=== PATIENT | male | born 1955 | race Hispanic/Latino ===

== ENCOUNTER 2021-06-16 23:23 | Emergency (ER) | payer OTHER ==
[~2021-06-16] VITALS: Ht 167.6 cm; Wt 95.3 kg
[2021-06-16 23:45] LABS: BASOPHILS % (AUTO) 0.4 % (0.0-5.0); EOSINOPHILS % (AUTO) 0.3 % (0.0-8.0); HEMATOCRIT 45.7 % (42-54); LYMPHOCYTES % (AUTO) 14.3 % (21.0-51.0); MEAN CORPUSCULAR HGB CONC 32.8 g/dL (32.0-36.0); MEAN CORPUSCULAR VOLUME 88.2 fL (79-99); MONOCYTES % (AUTO) 5.6 % (3.0-13.0); NEUTROPHILS % (AUTO) 79.1 % (40.0-77.0); PLATELET COUNT (AUTO) 223 K/uL (130-400); RED BLOOD CELL COUNT(AUTO) 5.18 MIL/uL (4.50-6.20); RED CELL DISTRIBUTION WIDTH 13.5 % (11.0-15.5); WHITE BLOOD COUNT (AUTO) 11.8 K/uL (4.8-10.8)
[2021-06-16] MEDS ORDERED: ONDANSETRON 4MG INJ ONE (23:50)
[2021-06-16] MEDS ORDERED: MORPHINE 2 MG SYG ONE (23:51)
[2021-06-16 23:56] LABS: CREATININE 0.7 mg/dL (0.5-1.5); POTASSIUM 3.7 mmol/L (3.5-5.1)
[2021-06-17] MEDS ORDERED: MORPHINE 2 MG SYG IVP ONE
[2021-06-17] MEDS ORDERED: ONDANSETRON 4MG INJ IVP ONE
[2021-06-17] MEDS ORDERED: 0.9% NACL 500ML IV.SOLN 500 ML IV ONE
[2021-06-17 00:02] LABS: ALBUMIN 4.2 g/dL (3.5-5.0); BILIRUBIN,TOTAL 0.7 mg/dL (0.2-1.0); TOTAL PROTEIN, SERUM 7.9 g/dL (6.0-8.3)
[2021-06-17 00:03] LABS: APPEARANCE,URINE CLEAR (CLEAR); BILIRUBIN,URINE NEGATIVE (NEGATIVE); COLOR,URINE YELLOW (YELLOW); GLUCOSE, URINE (UA) NEGATIVE (NEGATIVE); KETONES,URINE >=80 mg/dL (NEGATIVE); LEUKOCYTE ESTERASE ,URINE NEGATIVE (NEGATIVE); NITRATE,URINE NEGATIVE (NEGATIVE); OCCULT BLOOD,URINE NEGATIVE (NEGATIVE); PH,URINE 6.5 (5.0-8.0); PROTEIN,URINE TRACE mg/dL (NEGATIVE); UROBILINOGEN,URINE 0.2 mg/dL (0.2-1.0)
[2021-06-17 00:21] LABS: BACTERIA,URINE Rare /HPF (None Seen); MUCUS,URINE Rare LPF (None Seen); RBC,URINE None Seen /HPF (0-1); SQUAMOUS EPITHELIAL CELL,UR 0-2 /HPF (0-2); WBC,URINE 0-1 /HPF (0-1)
[2021-06-17] MEDS ORDERED: MAG/ALUM/SIMETH 30 ML UDCUP ONE (01:55)
[2021-06-17] MEDS ORDERED: LIDOCAINE HCL 2% VISCOUS 15 ML UDCUP ONE (01:55)
[2021-06-17] MEDS ORDERED: DICYCLOMINE HCL 10 MG/5 ML ML PO ONE (01:59)
[2021-06-17] MEDS ORDERED: SUCRALFATE 1 GM TABLET ONE (02:11)
[2021-06-17] MEDS ORDERED: ONDANSETRON 4MG INJ ONE (02:18)
[2021-06-17] MEDS ORDERED: MAG/ALUM/SIMETH 30 ML UDCUP PO ONE (02:30)
[2021-06-17] MEDS ORDERED: DICYCLOMINE HCL 10 MG/5 ML ML PO SCH (02:30)
[2021-06-17] MEDS ORDERED: LIDOCAINE HCL 2% VISCOUS 15 ML UDCUP PO ONE (02:30)
[2021-06-17] MEDS ORDERED: SUCRALFATE 1 GM TABLET PO SCH (02:30)
[2021-06-17 02:41] VITALS: BP 160/87
[2021-06-17] MEDS ORDERED: ONDA-104 PO (02:46)
[2021-06-17] MEDS ORDERED: SUCR1TAB2 PO (02:46)
== END 2021-06-17 02:55 | disposition home or self-care (01) ==
LOC: EDH 23:23
DX: K29.70 Gastritis, unspecified, without bleeding (principal)
CPT/HCPCS: 36415; 74176; 76705; 80053; 81001; 83690; 83880; 84484; 85025; 93005; 96361; 96374; 96375; 96376; 99285; J2405 ×2

== ENCOUNTER 2021-07-10 22:25 | Emergency (ER) | payer OTHER ==
[~2021-07-10] VITALS: Ht 167.6 cm; Wt 92.1 kg
[~2021-07-10 22:25] MED LIST: ONDA-104 PO; SUCR1TAB2 PO
[2021-07-10 22:57] LABS: BASOPHILS % (AUTO) 0.8 % (0.0-5.0); EOSINOPHILS % (AUTO) 2.3 % (0.0-8.0); HEMATOCRIT 45.8 % (42-54); LYMPHOCYTES % (AUTO) 34.4 % (21.0-51.0); MEAN CORPUSCULAR HEMOGLOBIN 28.4 pg (27.0-33.0); MEAN CORPUSCULAR HGB CONC 32.1 g/dL (32.0-36.0); MEAN CORPUSCULAR VOLUME 88.6 fL (79-99); MONOCYTES % (AUTO) 8.6 % (3.0-13.0); NEUTROPHILS % (AUTO) 53.6 % (40.0-77.0); PLATELET COUNT (AUTO) 220 K/uL (130-400); RED BLOOD CELL COUNT(AUTO) 5.17 MIL/uL (4.50-6.20); RED CELL DISTRIBUTION WIDTH 13.5 % (11.0-15.5); WHITE BLOOD COUNT (AUTO) 8.7 K/uL (4.8-10.8)
[2021-07-10] MEDS ORDERED: MAG/ALUM/SIMETH 30 ML UDCUP PO ONE (23:00)
[2021-07-10] MEDS ORDERED: DICYCLOMINE HCL 10 MG/5 ML ML PO ONE (23:00)
[2021-07-10] MEDS ORDERED: PROMETHAZINE HCL 25 MG/ML 1ML AMPULE IM ONE (23:00)
[2021-07-10] MEDS ORDERED: FAMOTIDINE 20MG VIAL IV ONE (23:00)
[2021-07-10] MEDS ORDERED: ONDANSETRON 4MG INJ IVP ONE (23:00)
[2021-07-10] MEDS ORDERED: 0.9%NACL 1000ML 1,000 ML IV ONE (23:00)
[2021-07-10] MEDS ORDERED: LIDOCAINE HCL 2% VISCOUS 15 ML UDCUP PO ONE (23:00)
[2021-07-10 23:09] LABS: CREATININE 1.1 mg/dL (0.5-1.5); POTASSIUM 3.9 mmol/L (3.5-5.1)
[2021-07-10 23:16] LABS: ALBUMIN 3.9 g/dL (3.5-5.0); BILIRUBIN,TOTAL 0.2 mg/dL (0.2-1.0); TOTAL PROTEIN, SERUM 7.5 g/dL (6.0-8.3)
[2021-07-10] MEDS ORDERED: LORAZEPAM 2 MG/ML 1 ML VIAL IVP ONE (23:30)
[2021-07-10] MEDS ORDERED: DICY20TA2 PO (23:45)
[2021-07-10] MEDS ORDERED: FAMO-136 PO (23:45)
[2021-07-10] MEDS ORDERED: ONDA4TAB10 PO (23:45)
[2021-07-11 01:17] LABS: APPEARANCE,URINE Clear (CLEAR); BILIRUBIN,URINE Negative (NEGATIVE); COLOR,URINE Yellow (YELLOW); GLUCOSE, URINE (UA) Negative (NEGATIVE); KETONES,URINE Trace mg/dL (NEGATIVE); LEUKOCYTE ESTERASE ,URINE Negative (NEGATIVE); NITRATE,URINE Negative (NEGATIVE); OCCULT BLOOD,URINE Negative (NEGATIVE); PH,URINE 6.5 (5.0-8.0); PROTEIN,URINE Trace mg/dL (NEGATIVE); UROBILINOGEN,URINE 0.2 mg/dL (0.2-1.0)
[2021-07-11 03:52] VITALS: BP 145/74
== END 2021-07-11 03:55 | disposition home or self-care (01) ==
LOC: EDH 22:25
DX: K29.70 Gastritis, unspecified, without bleeding (principal); R07.89 Other chest pain; E66.9 Obesity, unspecified; Z68.32 Body mass index [BMI] 32.0-32.9, adult; E78.00 Pure hypercholesterolemia, unspecified; I10 Essential (primary) hypertension; Z79.899 Other long term (current) drug therapy; Z98.890 Other specified postprocedural states
CPT/HCPCS: 36415; 76705; 80053; 81003; 83690; 84484; 85025; 93005 ×3; 96361; 96372; 96374; 96375; 99285; J2060; J2405; J2550; J3490; J7030

== ENCOUNTER 2024-05-18 23:31 | Emergency (ER) | payer OTHER ==
[~2024-05-18] VITALS: Ht 167.6 cm; Wt 91.6 kg
[~2024-05-18 23:31] MED LIST changes: +ASPI-1197 PO; +ATOR40TA71 PO; +FINA5TAB41 PO; +LEVO5TAB13 PO; +LISI5TAB21 PO; -ONDA-104 PO; +PANT40TA54 PO; -SUCR1TAB2 PO
--- NOTE | 2024-05-19 00:26 | EKG ---
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
[2024-05-19] MEDS: PANTOPrazole 40 MG/VIAL IVP ONE (00:30)
[2024-05-19] MEDS: ondanSETRON 4MG INJ IVP ONE (00:30)
[2024-05-19 00:39] LABS: BASOPHILS # (AUTO) 0.05 K/uL (0.00-0.20); BASOPHILS % (AUTO) 0.7 % (0.0-5.0); EOSINOPHILS # (AUTO) 0.05 K/uL (0.00-0.70); EOSINOPHILS % (AUTO) 0.7 % (0.0-8.0); HEMATOCRIT 46.7 % (42-54); IMMATURE GRANULOCYTE ABSOLUTE 0.01 K/uL (0-1); LYMPHOCYTES % (AUTO) 15.6 % (21.0-51.0); MEAN CORPUSCULAR VOLUME 87.9 fL (79-99); MONOCYTES # (AUTO) 1.1 K/uL (0.1-1.0); MONOCYTES % (AUTO) 16.3 % (3.0-13.0); NEUTROPHILS # (AUTO) 4.4 K/uL (1.8-7.7); NEUTROPHILS % (AUTO) 66.6 % (40.0-77.0); PLATELET COUNT (AUTO) 144 K/uL (130-400); RED BLOOD CELL COUNT(AUTO) 5.31 MIL/uL (4.50-6.20); RED CELL DISTRIBUTION WIDTH 13.4 % (11.0-15.5); WHITE BLOOD COUNT (AUTO) 6.7 K/uL (4.8-10.8)
[2024-05-19 00:54] LABS: ALBUMIN 3.6 g/dL (3.5-5.0); BILIRUBIN,DIRECT 0.1 mg/dL (0.0-0.3); BILIRUBIN,TOTAL 0.3 mg/dL (0.2-1.0); CREATININE 0.8 mg/dL (0.5-1.3); POTASSIUM 3.8 mmol/L (3.5-5.1); TOTAL PROTEIN, SERUM 7.4 g/dL (6.0-8.3)
--- NOTE | 2024-05-19 01:20 | HMCIMG ---
CT ABDOMEN/PELVIS W/O CONTRAST HISTORY: Pain COMPARISON: 01/27/2024 TECHNIQUE: Multiple sequential axial images of the abdomen and pelvis were obtained from the dome of the diaphragm through symphysis pubis. Patient was not given contrast through intravenous route. Oral contrast was not given. FINDINGS: No pleural effusion is seen bilaterally. There is no evidence of parenchymal disease or pulmonary nodule of the visualized lower lungs. Degenerative changes of the thoracolumbar spine are present. The heart is not enlarged. The liver measures 15 cm. Gallbladder is distended. There is mild diverticulosis. The liver, spleen, adrenal glands and pancreas are unremarkable. There is no evidence of hydronephrosis bilaterally. No evidence of renal stone is seen. Fecal material is seen in the colon. There are normal size retroperitoneal and mesenteric lymph nodes. No ascites is seen. Atherosclerotic changes are present. No CT evidence of acute appendicitis is seen. Pelvic sidewalls are symmetric bilaterally. Bladder is well distended without wall thickening. IMPRESSION: 1. Mild diverticulosis. CT was performed with one or more following dose reduction techniques: automated exposure control, adjustment of the mA and kv according to patient's size, or use of a iterative reconstruction technique.
[2024-05-19 02:26] LABS: APPEARANCE,URINE CLEAR (CLEAR); BILIRUBIN,URINE NEGATIVE (NEGATIVE); COLOR,URINE YELLOW (YELLOW); GLUCOSE, URINE (UA) NEGATIVE (NEGATIVE); KETONES,URINE NEGATIVE (NEGATIVE); LEUKOCYTE ESTERASE ,URINE NEGATIVE Leu/uL (NEGATIVE); NITRATE,URINE NEGATIVE (NEGATIVE); OCCULT BLOOD,URINE NEGATIVE (NEGATIVE); PH,URINE 5.5 (5.0-8.0); PROTEIN,URINE 30 mg/dL (NEGATIVE); UROBILINOGEN,URINE 0.2 mg/dL (0.2-1.0)
[2024-05-19 02:28] LABS: ADD UA MICROSCOPIC YES
[2024-05-19 02:32] LABS: MUCUS,URINE FEW LPF (None Seen); OTHER CASTS, URINE 2 /LPF (None Seen); RBC,URINE 0-1 /HPF (0-1)
--- NOTE | 2024-05-19 02:45 | ERN ---
ED Note History of Present Illness Stated Complaint: NAUSEA, VOMITTING Chief Complaint: Nausea,Vomiting,Diarrhea Time Seen by MD: 23:42 Time Seen by Midlevel: 23:42 Dictation: The patient is a 69-year-old male with a history of CAD, hypertension who pr esents to the emergency department with complaints of epigastric pain associated with nausea nonbloody vomiting. Denies any diarrhea or constipation. Denies any fevers. Patient reports he was seen by his tape edge machine operator today and he told him he had gastritis. Reports he gave him a prescription for Protonix which has helped with the gastritis in the past but patient reports he was not able to get to the pharmacy on time to flower buncher or picker his prescription strength Allergies: Coded Allergies: Iodinated Contrast Media (Unverified Allergy, Unknown, 01/27/24) No Known Drug Allergies (Unverified Allergy, Unknown, 06/16/21) Home Meds Active Scripts Pantoprazole Sodium (Pantoprazole Sodium) 40 Mg Tablet.dr, 1 TAB PO DAILY for 14 Days, #14 TAB 0 Refills Prov:JUANIS LOPEZ CNC LASER OPERATOR 01/30/24 Atorvastatin Calcium (Atorvastatin Calcium) 40 Mg Tablet, 40 MG PO HS, #90 TAB 3 Refills Prov:JUANIS LOPEZ CNC LASER OPERATOR 01/30/24 Reported Medications Aspirin (Aspirin) 81 Mg Tab.chew, 1 TAB PO DAILY for 30 Days, #30 TAB 0 Refills 01/28/24 Levocetirizine Dihydrochloride (Levocetirizine Dihydrochloride) 5 Mg Tablet, 1 TAB PO DAILY for 30 Days, #30 TAB 0 Refills 01/28/24 Lisinopril (Lisinopril) 5 Mg Tablet, 1 TAB PO DAILY for 30 Days, #30 TAB 0 Refills 01/28/24 Finasteride (Finasteride) 5 Mg Tablet, 5 MG PO DAILY, TAB 01/28/24 Past Medical History Past Medical History: High Cholesterol, Heart Disease, Hypertension, CT Additional Past Medical Hx: Gastritis Surgical History: CABG Family History: Negative Social History: Negative, Lives with family RN Note Reviewed/Agreed w/PFSH: Yes Review of System Dictation Constitutional: Negative for fever,chills, and weight loss Eyes: Negative for injury, pain,redness, and discharge ENT: Negative for injury,pain or swelling Cardiovascular: Negative for chest pain, palpitations, and edema Respiratory: Negative for shortness of breath, cough, and wheezing, Abdomen/GI: Negative for diarrhea, and constipation positive for abdominal pain , nausea, vomiting, Back: Negative for injury and pain : Negative for injury, bleeding and discharge MS/Extremity: Negative for injury and deformity Skin: Negative for rash, and discoloration Neuro: Negative for headache, weakness, numbness, tingling, and seizure Psych: Negative for suicide ideation, homicidal ideation, and hallucinations Initial Vital Sign VS Vital Signs Date Time Temp Pulse Resp B/P (MAP) Pulse Ox O2 Delivery O2 Flow Rate FiO2 05/18/24 23:45 98.1 83 16 140/82 94 Room Air 0 05/19/24 00:30 21 Physical Exam Dictation Vital Signs reviewed General Appearance: Alert, oriented x 3, no acute distress, well developed, nourished. Head and Face: non-traumatic. Eyes: PERRL, pink conjunctivas, eyelid no trauma, anterior chamber with arcus senilis. Ears: Pinnas intact and no signs of trauma or erythema ear canals clear and no discharge TM no erythema Nose: No discharge, no bleeding. Oropharynx: Mouth normal, tongue pink. pharynx clear,no erythema, tonsils no exudates, no abscesses noted, mucous membrane moist Neck: Supple, non-tender, no thyromegaly, no masses, no JVD, no bruits Breast:Deferred Chest:No tenderness, no crepitus, no paradoxical movement, no retractions Lungs:Clear, well-ventilated, symmetric, no rales, no wheezing, no rhonchi, no stridor, good breath sounds bilaterally Heart: Regular rate, regular rhythm, no murmur, no gallops Vascular: no peripheral edema, Abdomen: Soft, positive bowel sounds, nondistended, no guarding, nontender, no rebound, no masses no hepatomegaly, no splenomegaly, no Rivers's sign, no hernias. Rectal: Deferred Genital: Deferred Neurological: Normal speech, motor function intact, sensory function intact Musculoskeletal: Neck nontender, full range of motion, back nontender, full range of motion, Extremities: nontender, full range of motion Skin: Color pink, dry, no turgor, no rash, no lacerations, no abrasions, no contusions. Lymphatic: Deferred Results (Laboratory/Radiology) Laboratory/Radiology Laboratory Tests Test 05/19/24 00:28 05/19/24 02:08 White Blood Count 6.7 K/uL (4.8-10.8) Red Blood Count 5.31 MIL/uL (4.50-6.20) Hemoglobin 15.4 g/dL (14.0-18.0) Hematocrit 46.7 % (42-54) Mean Corpuscular Volume 87.9 fL (79-99) Mean Corpuscular Hemoglobin 29.0 pg (27.0-33.0) Mean Corpuscular Hemoglobin Concent 33.0 g/dL (32.0-36.0) Red Cell Distribution Width 13.4 % (11.0-15.5) Platelet Count 144 K/uL (130-400) Mean Platelet Volume 9.0 fL (7.5-10.5) Immature Granulocyte % (Auto) 0.1 % (0-1) Neutrophils (%) (Auto) 66.6 % (40.0-77.0) Lymphocytes (%) (Auto) 15.6 % (21.0-51.0) L Monocytes (%) (Auto) 16.3 % (3.0-13.0) H Eosinophils (%) (Auto) 0.7 % (0.0-8.0) Basophils (%) (Auto) 0.7 % (0.0-5.0) Neutrophils # (Auto) 4.4 K/uL (1.8-7.7) Lymphocytes # (Auto) 1.0 K/uL (1.0-4.8) Monocytes # (Auto) 1.1 K/uL (0.1-1.0) H Eosinophils # (Auto) 0.05 K/uL (0.00-0.70) Basophils # (Auto) 0.05 K/uL (0.00-0.20) Absolute Immature Granulocyte (auto 0.01 K/uL (0-1) Nucleated Red Blood Cells 0.0 % (0.0-0.19) White Cell Morphology Comment See comments Sodium Level 134 mmol/L (136-145) L Potassium Level 3.8 mmol/L (3.5-5.1) Chloride Level 99 mmol/L (101-111) L Carbon Dioxide Level 26 mmol/L (21-32) Blood Urea Nitrogen 12 mg/dL (7-18) Creatinine 0.8 mg/dL (0.5-1.3) Glomerular Filtration Rate Calc 95 mL/min (>90) Random Glucose 150 mg/dL (70-105) H Total Calcium 8.3 mg/dL (8.5-10.1) L Total Bilirubin 0.3 mg/dL (0.2-1.0) Direct Bilirubin 0.1 mg/dL (0.0-0.3) Aspartate Amino Transf (AST/SGOT) 20 U/L (10-37) Alanine Aminotransferase (ALT/SGPT) 26 U/L (12-78) Alkaline Phosphatase 118 U/L (50-136) Total Creatine Kinase 107 U/L (21-232) Troponin I High Sensitivity 36.3 ng/L (4-75) 32 ng/L (4-75) Total Protein 7.4 g/dL (6.0-8.3) Albumin 3.6 g/dL (3.5-5.0) Lipase 23 U/L (16-77) Urine Color YELLOW (YELLOW) Urine Appearance CLEAR (CLEAR) Urine pH 5.5 (5.0-8.0) Urine Specific [place] 1.021 (1.001-1.031) Urine Protein 30 mg/dL (NEGATIVE) H Urine Glucose (UA) NEGATIVE mg/dL (NEGATIVE) Urine Ketones NEGATIVE mg/dL (NEGATIVE) Urine Occult Blood NEGATIVE (NEGATIVE) Urine Nitrate NEGATIVE (NEGATIVE) Urine Bilirubin NEGATIVE mg/dL (NEGATIVE) Urine Urobilinogen 0.2 mg/dL (0.2-1.0) Urine Leukocyte Esterase NEGATIVE Curtis/uL Urine RBC 0-1 /HPF (0-1) Urine WBC 6-10 /HPF (0-1) H Urine Bacteria None /HPF (None Seen) Urine Other Casts 2 /LPF (None Seen) REASON: epigastric abd pain ORDERING PHYSICIAN: LAURA ANDRADE PROCEDURE: ABD PEL WO - CT ABDOMEN/PELVIS W/O CONTRAST CT ABDOMEN/PELVIS W/O CONTRAST HISTORY: Pain COMPARISON: 01/27/2024 TECHNIQUE: Multiple sequential axial images of the abdomen and pelvis were obtained from the dome of the diaphragm through symphysis pubis. Patient was not given contrast through intravenous route. Oral contrast was not given. FINDINGS: No pleural effusion is seen bilaterally. There is no evidence of parenchymal disease or pulmonary nodule of the visualized lower lungs. Degenerative changes of the thoracolumbar spine are present. The heart is not enlarged. The liver measures 15 cm. Gallbladder is distended. There is mild diverticulosis. The liver, spleen, adrenal glands and pancreas are unremarkable. There is no evidence of hydronephrosis bilaterally. No evidence of renal stone is seen. Fecal material is seen in the colon. There are normal size retroperitoneal and mesenteric lymph nodes. No ascites is seen. Atherosclerotic changes are present. No CT evidence of acute appendicitis is seen. Pelvic sidewalls are symmetric bilaterally. Bladder is well distended without wall thickening. IMPRESSION: 1. Mild diverticulosis. CT was performed with one or more following dose reduction techniques: automated exposure control, adjustment of the mA and kv according to patient's size, or use of a iterative reconstruction technique. Labs Reviewed?: Yes EKG: (+) rhythm (Sinus rhythm) EKG Comment: Date:05/19/2024 Time:4 Ventricular rate:74 MS interval:180 QRS duration:92 QT/QTc:350 EKG interpretation: Sinus rhythm Reviewed by ED Attending no STEMI ED Course ED Course Orders Procedure Category Date Status Time Cbc With Differential LAB 05/19/24 Complete 00:09 Basic Metabolic Panel LAB 05/19/24 Complete 00:09 Hepatic Function Panel LAB 05/19/24 Complete 00:09 Urinalysis Profile LAB 05/19/24 Complete 00:11 12 Lead Ekg Tracing- EKG 05/19/24 Complete Technical 00:11 Ondansetron 4mg Inj PHA 05/19/24 Complete (Zofran 4mg Inj) 00:30 Pantoprazole 40mg Inj PHA 05/19/24 Complete (Protonix 40mg Inj 00:30 Ct Abdomen/Pelvis W/O CT 05/19/24 Resulted Contrast 00:11 Cardiac Panel LAB 05/19/24 Complete 00:28 Lipase LAB 05/19/24 Complete 00:28 Troponin I High LAB 05/19/24 Complete Sensitivity 01:53 Culture Urine GILLIAN 05/19/24 In Process 02:35 Current Medications Medications (Trade) Dose Ordered Sig/Adolph Route PRN Reason Start Time Stop Time Status Last Admin Dose Admin Ondansetron HCl (zoFRAN 4MG INJ) 4 mg ONCE ONCE IVP 05/19/24 00:30 05/19/24 00:31 DC 05/19/24 00:30 Pantoprazole Sodium (PROTonix 40MG INJ) 40 mg ONCE ONCE IVP 05/19/24 00:30 05/19/24 00:31 DC 05/19/24 00:30 Vital Signs Date Time Temp Pulse Resp B/P (MAP) Pulse Ox O2 Delivery O2 Flow Rate FiO2 05/19/24 02:12 98.4 81 17 131/77 96 Room Air* 0 21 05/19/24 00:30 98.4 79 18 130/80 96 Room Air* 0 21 05/18/24 23:45 98.1 83 16 140/82 94 Room Air 0 Medical Decision Making MDM The patient is a 69-year-old male with a history of CAD, hypertension who presents to the emergency department with complaints of epigastric pain associated with nausea nonbloody vomiting. Denies any diarrhea or constipation. Denies any fevers. Patient reports he was seen by his tape edge machine operator today and he told him he had gastritis. Reports he gave him a prescription for Protonix which has helped with the gastritis in the past but patient reports he was not able to get to the pharmacy on time to flower buncher or picker his prescription strength CBC showed no leukocytosis, no anemia, chemistry showed mild hyponatremia, hypochloremia, normal renal function, negative lipase, negative liver enzymes. Troponins negative x2, urinalysis unremarkable. CT abdomen pelvis showed mild diverticulosis. Patient reports improving in pain and nausea and vomiting with medications. Patient received IV Protonix and IV Zofran in ER. Labs and imaging discussed with the patient who agrees to follow up with primary doctor in flower buncher or picker his prescription for Protonix in the morning. Patient in no acute distress, nontender abdomen. Stable vital signs Will be discharged Differential diagnosis: Gastritis, CAD, gastroenteritis, dehydration, bowel obstruction Need for hospitalization: Patient does not meet criteria for hospitalization. There are no social concerns with this patient. DX & DISP Disposition: Discharge Departure Impression: Primary Impression: Gastritis Condition: Stable Additional Instructions: Please follow up with the primary doctor in 1-2 days. please flower buncher or picker the prescription that was sent by a tape edge machine operator to help with your symptoms of gastritis. FOLLOW-UP WITH PRIMARY CARE PROVIDER IN 1 TO 2 DAYS. TAKE MEDICATIONS DIRECTED HERE IN THE EMERGENCY ROOM. OKAY TO CONTINUE HOME MEDICATIONS UNLESS OTHERWISE DISCUSSED DURING YOUR VISIT IN THE EMERGENCY ROOM TODAY. RETURN TO YOUR NEAREST EMERGENCY ROOM IF SYMPTOMS WORSEN OR IF THERE IS NO IMPROVEMENT. CALL 911 IF YOU NEED IMMEDIATE ASSISTANCE. TAKE TYLENOL OR MOTRIN OVE [id number] NEEDED AND IF NO CONTRAINDICATIONS ARE PRESENT. INCREASE ORAL HYDRATION. A WOUND CULTURE OR URINE CULTURE WAS ORDERED HERE IN THE EMERGENCY ROOM DEPARTMENT PLEASE FOLLOW-UP WITH PRIMARY CARE PROVIDER AND ADVISE THEM TO GET REPEAT PORTS FROM OUR FACILITY. IF YOU HAD ANY TIN WRAP/SPLINTS THAT WERE APPLIED HERE, PLEASE DO NOT REMOVE THEM UNTIL YOU SEE YOUR PRIMARY CARE OR SPECIALTY. Referrals: ALEJANDRA BENITEZ (PCP) Time of Disposition: 02:43 I have reviewed the case, and I agree with, Diagnosis and Plan LAURA ANDRADE May 19, 2024 02:44
[2024-05-19 02:47] VITALS: BP 144/79; PULSE 77; RESP 16; TEMP 98.4; O2SAT 98
== END 2024-05-19 02:54 | disposition home or self-care (01) ==
LOC: EDH 23:31
DX: K29.70 Gastritis, unspecified, without bleeding (principal); E78.00 Pure hypercholesterolemia, unspecified; I10 Essential (primary) hypertension; I25.2 Old myocardial infarction; Z79.82 Long term (current) use of aspirin; Z79.899 Other long term (current) drug therapy; Z91.041 Radiographic dye allergy status; Z95.1 Presence of aortocoronary bypass graft
CPT/HCPCS: 99285; 82550; 80076; 84484 ×2; 80048; 83690; 85025; 87086; 81001; 36415; 74176; 96374; 96375; 93005; J2405; J2470; 99284

== ENCOUNTER → 2024-07-17 | Outpatient (CLI) | payer OTHER ==
--- NOTE | 2024-07-17 16:38 | HMCIMG ---
US VENOUS DOPPLER UNILATERAL HISTORY: Right arm pain COMPARISON: None TECHNIQUE: Right upper extremity venous Doppler ultrasound study was performed. FINDINGS: The right subclavian, axillary, and brachial veins are visualized. Normal flow with augmentation and compressibilities are demonstrated. Right cephalic and basilic veins are patent. IMPRESSION: 1. No evidence of deep venous thrombosis is seen.
== END | disposition home or self-care (01) ==
LOC: RAH 13:02
PROVIDERS: ATTEND Internal Medicine
DX: I87.1 Compression of vein (principal); M79.601 Pain in right arm
CPT/HCPCS: 93971